=== PATIENT | male | born 1950 | race Caucasian/White ===

== ENCOUNTER 2018-02-09 10:35 | Emergency (ER) | payer MEDICARE ==
[~2018-02-09] VITALS: Ht 170.2 cm; Wt 96.2 kg
[2018-02-09 10:39] VITALS: BP 153/95
[2018-02-09 11:48] LABS: BASOPHILS # (AUTO) 0.03 x10^3/uL (0-0.1); BASOPHILS % (AUTO) 0 % (0-1); EOSINOPHILS # (AUTO) 0.15 x10^3/uL (0-0.4); EOSINOPHILS % (AUTO) 2 % (1-7); LYMPHOCYTES # (AUTO) 1.25 x10^3/uL (1-3.4); LYMPHOCYTES % (AUTO) 15 % (22-44); MD NO; MEAN CORPUSCULAR HEMOGLOBIN 31.3 pg (27.5-34.5); MEAN CORPUSCULAR HGB CONC 33.8 g/dL (33.2-36.2); MEAN CORPUSCULAR VOLUME 92.6 fL (81-97); MEAN PLATELET VOLUME 8.3 fL (7.4-10.4); MONOCYTES # (AUTO) 0.65 x10^3/uL (0.2-0.8); MONOCYTES % (AUTO) 8 % (2-9); NEUTROPHILS # (AUTO) 6.36 x10^3/uL (1.8-6.8); NEUTROPHILS % (AUTO) 75 % (42-75); PLATELET COUNT 228 x10^3/uL (130-400); RED BLOOD COUNT 4.64 x10^6/uL (4.38-5.82); RED CELL DISTRIBUTION WIDTH 14.2 % (9.4-14.8)
[2018-02-09 11:58] LABS: ALBUMIN 3.4 g/dL (3.4-5.0); ANION GAP 5 mmol/L (5-15); CALCIUM 8.6 mg/dL (8.5-10.1); CHLORIDE 107 mmol/L (98-107); CREATININE 0.93 mg/dL (0.7-1.3)
== END 2018-02-09 13:13 | disposition home or self-care (01) ==
LOC: ED 13:12
DX: M25.562 Pain in left knee (principal); M79.662 Pain in left lower leg; M25.572 Pain in left ankle and joints of left foot; M06.9 Rheumatoid arthritis, unspecified; Z88.5 Allergy status to narcotic agent; Z88.2 Allergy status to sulfonamides
CPT/HCPCS: 36415; 80048; 82040; 85025; 99285

== ENCOUNTER 2018-06-08 20:35 | Inpatient (IN) | payer MEDICARE ==
[~2018-06-08] VITALS: Ht 175.3 cm; Wt 96.0 kg
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
[2018-06-08] MEDS ORDERED: SODIUM CHLORIDE FLUSH 10ML SYR IVF ONE (21:00)
[2018-06-08] MEDS ORDERED: ONDANSETRON 2MG/ML, 2ML IVPush ONE (21:00)
[2018-06-08 21:04] LABS: BASOPHILS # (AUTO) 0.05 x10^3/uL (0-0.1); BASOPHILS % (AUTO) 0 % (0-1); EOSINOPHILS # (AUTO) 0.17 x10^3/uL (0-0.4); EOSINOPHILS % (AUTO) 1 % (1-7); LYMPHOCYTES # (AUTO) 1.72 x10^3/uL (1-3.4); LYMPHOCYTES % (AUTO) 13 % (22-44); MD NO; MEAN CORPUSCULAR HEMOGLOBIN 31.4 pg (27.5-34.5); MEAN CORPUSCULAR VOLUME 92.4 fL (81-97); MEAN PLATELET VOLUME 7.6 fL (7.4-10.4); MONOCYTES # (AUTO) 0.71 x10^3/uL (0.2-0.8); MONOCYTES % (AUTO) 5 % (2-9); NEUTROPHILS # (AUTO) 10.87 x10^3/uL (1.8-6.8); NEUTROPHILS % (AUTO) 80 % (42-75); PLATELET COUNT 233 x10^3/uL (130-400); RED BLOOD COUNT 4.96 x10^6/uL (4.38-5.82); RED CELL DISTRIBUTION WIDTH 14.4 % (9.4-14.8)
[2018-06-08 21:15] LABS: ALANINE AMINOTRANSFERASE 33 U/L (12-78); ALBUMIN 3.9 g/dL (3.4-5.0); ANION GAP 4 mmol/L (5-15); CALCIUM 9.5 mg/dL (8.5-10.1); CHLORIDE 105 mmol/L (98-107); CREATININE 0.94 mg/dL (0.7-1.3)
[2018-06-08 21:17] LABS: ALKALINE PHOSPHATASE 90 U/L (45-117); BILIRUBIN,TOTAL 0.5 mg/dL (0.2-1.0); TOTAL PROTEIN 7.9 g/dL (6.4-8.2)
--- NOTE | 2018-06-08 21:27 | NUR ---
IV ESTABLISHED, PT TO CT
[2018-06-08] MEDS ORDERED: OMNIPAQUE 350 MG/ML, 100ML BOTTLE ONE (22:03)
[2018-06-08] MEDS ORDERED: GABA300C10 PO (22:11)
[2018-06-08] MEDS ORDERED: HYDR25TA6 PO (22:11)
[2018-06-08] MEDS ORDERED: ONDANSETRON 2MG/ML, 2ML ONE (22:11)
[2018-06-08] MEDS ORDERED: CETI-237 PO (22:11)
[2018-06-08] MEDS ORDERED: ASPI-496 PO (22:11)
[2018-06-08] MEDS ORDERED: OMEP-110 PO (22:11)
[2018-06-08] MEDS ORDERED: SPIR50TA4 PO (22:11)
[2018-06-08] MEDS ORDERED: LOSA100T14 PO (22:11)
[2018-06-08] MEDS ORDERED: HYDROmorphone 1 MG/ML, 1ML AMP ONE (22:12)
--- NOTE | 2018-06-08 22:13 | NUR ---
PT MEDICATED PER eMAR
[2018-06-08] MEDS: HYDROmorphone 2 MG/ML, 1ML IVPush PRN (22:21)
--- NOTE | 2018-06-08 22:30 | NUR ---
PT O2 SAT DROPPING IN 80'S, PLACED ON O2 VIA NC
[2018-06-08 22:37] LABS: MICROSCOPIC NOT IND
[2018-06-08 22:40] LABS: CULTURE INDICATED? NO
--- NOTE | 2018-06-08 23:20 | NUR ---
PER DR COLE, NO CIPRO OR FLAGYL
[2018-06-08] MEDS ORDERED: METRONIDAZOLE PMX 500MG/100ML 0 ML ONE (23:22)
[2018-06-08] MEDS ORDERED: CIPROFLOXACIN/PMX 400MG/200ML 0 ML ONE (23:23)
--- NOTE | 2018-06-08 23:24 | NUR ---
PER DR GAVIN, NO BLOOD CULTURES TO BE DRAWN BEFORE ANTIBIOTICS
[2018-06-08] MEDS ORDERED: CIPROFLOXACIN/PMX 400MG/200ML 200 ML IV ONE (23:30)
[2018-06-08] MEDS ORDERED: METRONIDAZOLE PMX 500MG/100ML 100 ML IV ONE (23:30)
--- NOTE | 2018-06-08 23:39 | NUR ---
REPORT GIVE TO MARK MARX
[2018-06-09] MEDS ORDERED: hydrALAzine 20 MG/ML, 1ML IVPush PRN
[2018-06-09] MEDS ORDERED: OXYcodone/APAP 5/325MG TABLET PO PRN
[2018-06-09] MEDS ORDERED: ONDANSETRON 2MG/ML, 2ML IVPush PRN
[2018-06-09] MEDS ORDERED: PROMETHAZINE 25 MG/ML, 1ML IM PRN
[2018-06-09] MEDS ORDERED: ONDANSETRON ODT 4 MG PO PRN
[2018-06-09] MEDS ORDERED: ACETAMINOPHEN 325 MG TABLET PO PRN
[2018-06-09] MEDS ORDERED: LABETALOL 5 MG/ML SYRINGE IVPush PRN
[2018-06-09 00:04] VITALS: BP 165/75
[2018-06-09 00:08] LABS: HEMOGLOBIN A1C 5.6 % (4.2-6.3)
[2018-06-09 00:09] LABS: FREE T4 (FREE THYROXINE) 0.88 ng/dL (0.76-1.46); THYROID STIMULATING HORMONE 1.67 mIU/L (0.358-3.740)
[2018-06-09] MEDS: HYDROmorphone 2 MG/ML, 1ML IVPush PRN (00:47)
[2018-06-09] MEDS: PIPERACILLIN/TAZO/PMX 3.375GM 50 ML IV SCH ×4 (00:47→17:57)
[2018-06-09] MEDS: SODIUM CHLORIDE 0.9% 1,000 ML IV SCH ×2 (00:47→10:58)
[2018-06-09] MEDS: GABAPENTIN 300 MG CAPSULE PO SCH ×4 (00:48→20:02)
[2018-06-09 00:53] LABS: HCT (SEDRATE) 45.9 % (39.2-51.8)
[2018-06-09] MEDS: LACTOBACILLUS CHEW TABLET PO SCH ×4 (01:02→20:02)
[2018-06-09] MEDS: HYDROmorphone 2 MG/ML, 1ML IV PRN ×6 (01:19→23:31)
[2018-06-09 02:20] VITALS: BP 137/82
[2018-06-09 06:02] LABS: BASOPHILS # (AUTO) 0.03 x10^3/uL (0-0.1); BASOPHILS % (AUTO) 0 % (0-1); EOSINOPHILS % (AUTO) 3 % (1-7); LYMPHOCYTES # (AUTO) 2.14 x10^3/uL (1-3.4); LYMPHOCYTES % (AUTO) 16 % (22-44); MD NO; MEAN CORPUSCULAR HEMOGLOBIN 30.7 pg (27.5-34.5); MEAN CORPUSCULAR HGB CONC 33.1 g/dL (33.2-36.2); MEAN CORPUSCULAR VOLUME 92.7 fL (81-97); MEAN PLATELET VOLUME 7.9 fL (7.4-10.4); MONOCYTES # (AUTO) 1.04 x10^3/uL (0.2-0.8); MONOCYTES % (AUTO) 8 % (2-9); NEUTROPHILS # (AUTO) 9.62 x10^3/uL (1.8-6.8); NEUTROPHILS % (AUTO) 73 % (42-75); PLATELET COUNT 205 x10^3/uL (130-400); RED BLOOD COUNT 4.71 x10^6/uL (4.38-5.82); RED CELL DISTRIBUTION WIDTH 14.6 % (9.4-14.8)
[2018-06-09 06:08] LABS: ALANINE AMINOTRANSFERASE 24 U/L (12-78); ALBUMIN 3.4 g/dL (3.4-5.0); ANION GAP 4 mmol/L (5-15); CALCIUM 8.7 mg/dL (8.5-10.1); CHLORIDE 107 mmol/L (98-107)
[2018-06-09 06:11] LABS: ALKALINE PHOSPHATASE 79 U/L (45-117); BILIRUBIN,TOTAL 0.8 mg/dL (0.2-1.0); CHOL/HDL RATIO 3.4; CHOLESTEROL, TOTAL 144 mg/dL (140-239); CREATININE 1.02 mg/dL (0.7-1.3); HDL CHOL % 29 % (26-37); HDL CHOLESTEROL (DIRECT) 42 mg/dL (40-60); LDL CHOLESTEROL,CALCULATED 80 mg/dL (54-169); LDL/HDL RATIO 1.9 (0.5-3.0); TOTAL PROTEIN 6.5 g/dL (6.4-8.2); TRIGLYCERIDES 110 mg/dL (50-200); VLDL CHOLESTEROL 22 mg/dL (0-25)
[2018-06-09] MEDS: OMEPRAZOLE 20 MG CAPSULE.DR PO SCH (07:55)
[2018-06-09] MEDS: ASPIRIN 81 MG TABLET EC PO SCH (07:55)
[2018-06-09 07:57] VITALS: BP 155/90
[2018-06-09] MEDS: HYDROCHLOROTHIAZIDE 25 MG TABLET PO SCH (07:57)
[2018-06-09] MEDS: LOSARTAN 50MG TABLET PO SCH (07:57)
[2018-06-09] MEDS: SPIRONOLACTONE 50 MG TABLET PO SCH (07:57)
[2018-06-09] MEDS: EZETIMIBE 10 MG TABLET PO SCH (12:04)
[2018-06-09 13:18] VITALS: BP 104/68
[2018-06-09 21:14] VITALS: BP 117/70
--- NOTE | 2018-06-09 23:14 | NUR ---
MARIBEL GRIER - Fall Risk Medication(s) present and receiving anticoagulants.
[2018-06-10] MEDS: PIPERACILLIN/TAZO/PMX 3.375GM 50 ML IV SCH ×5 (00:37→23:51)
[2018-06-10 01:09] VITALS: BP 108/64
[2018-06-10 07:40] VITALS: BP 106/67
[2018-06-10] MEDS: HYDROmorphone 2 MG/ML, 1ML IV PRN ×3 (07:54→19:48)
[2018-06-10] MEDS ORDERED: SPIRONOLACTONE 25 MG TABLET ONE (08:58)
[2018-06-10] MEDS: SPIRONOLACTONE 50 MG TABLET PO SCH (09:00)
[2018-06-10] MEDS: OMEPRAZOLE 20 MG CAPSULE.DR PO SCH ×2 (09:00→09:26)
[2018-06-10 09:21] LABS: CLOSTRIDIUM DIFFICILE ANTIGEN NEGATIVE; CLOSTRIDIUM DIFFICILE TOXIN NEGATIVE (Negative)
[2018-06-10 09:23] LABS: BASOPHILS # (AUTO) 0.09 x10^3/uL (0-0.1); BASOPHILS % (AUTO) 1 % (0-1); EOSINOPHILS # (AUTO) 0.36 x10^3/uL (0-0.4); EOSINOPHILS % (AUTO) 4 % (1-7); LYMPHOCYTES # (AUTO) 1.84 x10^3/uL (1-3.4); LYMPHOCYTES % (AUTO) 18 % (22-44); MD NO; MEAN CORPUSCULAR HEMOGLOBIN 30.4 pg (27.5-34.5); MEAN CORPUSCULAR HGB CONC 32.7 g/dL (33.2-36.2); MEAN CORPUSCULAR VOLUME 92.8 fL (81-97); MONOCYTES # (AUTO) 0.89 x10^3/uL (0.2-0.8); MONOCYTES % (AUTO) 9 % (2-9); NEUTROPHILS # (AUTO) 6.87 x10^3/uL (1.8-6.8); NEUTROPHILS % (AUTO) 68 % (42-75); PLATELET COUNT 204 x10^3/uL (130-400); RED CELL DISTRIBUTION WIDTH 14.8 % (9.4-14.8)
[2018-06-10] MEDS: GABAPENTIN 300 MG CAPSULE PO SCH ×3 (09:25→21:00)
[2018-06-10] MEDS: HYDROCHLOROTHIAZIDE 25 MG TABLET PO SCH (09:26)
[2018-06-10] MEDS: LOSARTAN 50MG TABLET PO SCH (09:26)
[2018-06-10] MEDS: ASPIRIN 81 MG TABLET EC PO SCH (09:26)
[2018-06-10] MEDS: LACTOBACILLUS CHEW TABLET PO SCH ×3 (09:26→21:00)
[2018-06-10] MEDS: EZETIMIBE 10 MG TABLET PO SCH (09:31)
[2018-06-10 09:59] LABS: ALBUMIN 3.2 g/dL (3.4-5.0); CALCIUM 8.5 mg/dL (8.5-10.1); CREATININE 1.18 mg/dL (0.7-1.3)
[2018-06-10 10:03] LABS: ANION GAP 8 mmol/L (5-15); CHLORIDE 105 mmol/L (98-107)
[2018-06-10 14:00] VITALS: BP 105/66
[2018-06-10] MEDS ORDERED: ENOXAPARIN 40 MG/0.4 ML ONE (16:03)
[2018-06-10] MEDS: ENOXAPARIN 40 MG/0.4 ML SQ SCH (16:06)
[2018-06-10 19:59] VITALS: BP 108/68
[2018-06-11 03:58] VITALS: BP 114/74
[2018-06-11] MEDS ORDERED: OMEPRAZOLE 20 MG CAPSULE.DR PO SCH (06:00)
[2018-06-11] MEDS: PIPERACILLIN/TAZO/PMX 3.375GM 50 ML IV SCH ×2 (06:02→11:43)
[2018-06-11] MEDS: HYDROmorphone 2 MG/ML, 1ML IV PRN (06:05)
[2018-06-11] MEDS ORDERED: SPIRONOLACTONE 25 MG TABLET ONE (07:58)
[2018-06-11 08:09] VITALS: BP 120/79
[2018-06-11] MEDS: LACTOBACILLUS CHEW TABLET PO SCH ×2 (08:11→15:48)
[2018-06-11] MEDS: GABAPENTIN 300 MG CAPSULE PO SCH ×2 (08:11→15:48)
[2018-06-11] MEDS: HYDROCHLOROTHIAZIDE 25 MG TABLET PO SCH (08:11)
[2018-06-11] MEDS: LOSARTAN 50MG TABLET PO SCH (08:11)
[2018-06-11] MEDS: SPIRONOLACTONE 50 MG TABLET PO SCH (08:12)
[2018-06-11] MEDS: EZETIMIBE 10 MG TABLET PO SCH (08:12)
[2018-06-11] MEDS: ASPIRIN 81 MG TABLET EC PO SCH (08:12)
[2018-06-11 08:54] LABS: BASOPHILS # (AUTO) 0.04 x10^3/uL (0-0.1); BASOPHILS % (AUTO) 1 % (0-1); EOSINOPHILS # (AUTO) 0.53 x10^3/uL (0-0.4); EOSINOPHILS % (AUTO) 6 % (1-7); LYMPHOCYTES # (AUTO) 2.25 x10^3/uL (1-3.4); LYMPHOCYTES % (AUTO) 26 % (22-44); MD NO; MEAN CORPUSCULAR HEMOGLOBIN 30.7 pg (27.5-34.5); MEAN CORPUSCULAR HGB CONC 33.2 g/dL (33.2-36.2); MEAN CORPUSCULAR VOLUME 92.4 fL (81-97); MEAN PLATELET VOLUME 7.9 fL (7.4-10.4); MONOCYTES # (AUTO) 0.82 x10^3/uL (0.2-0.8); MONOCYTES % (AUTO) 9 % (2-9); NEUTROPHILS # (AUTO) 5.05 x10^3/uL (1.8-6.8); NEUTROPHILS % (AUTO) 58 % (42-75); PLATELET COUNT 211 x10^3/uL (130-400); RED BLOOD COUNT 4.71 x10^6/uL (4.38-5.82); RED CELL DISTRIBUTION WIDTH 14.4 % (9.4-14.8)
[2018-06-11 08:58] LABS: ALBUMIN 3.3 g/dL (3.4-5.0); ANION GAP 8 mmol/L (5-15); CALCIUM 8.8 mg/dL (8.5-10.1); CHLORIDE 105 mmol/L (98-107); CREATININE 1.16 mg/dL (0.7-1.3)
[2018-06-11] MEDS ORDERED: CIPROFLOXACIN 500 MG TABLET PO SCH (09:00)
[2018-06-11] MEDS: metroNIDAZOLE 500 MG TABLET PO SCH ×2 (09:11→14:31)
[2018-06-11 13:11] VITALS: BP 105/69
[2018-06-11] MEDS ORDERED: LOPERAMIDE 2 MG CAPSULE PO ONE (14:30)
[2018-06-11] MEDS ORDERED: CIPR500T87 PO (14:42)
[2018-06-11] MEDS ORDERED: OXYC1TAB7 PO (14:42)
[2018-06-11] MEDS ORDERED: METR500T PO (14:42)
[2018-06-11 15:43] VITALS: BP 108/74
[2018-06-11] MEDS: ENOXAPARIN 40 MG/0.4 ML SQ SCH (15:48)
== END 2018-06-11 17:05 | disposition home or self-care (01) | DRG 371 ==
LOC: ED 22:53 → EDIP 23:17 → 4NOR 23:52
PROVIDERS: ADMIT Internal Medicine; ATTEND Internal Medicine
DX: A04.9 Bacterial intestinal infection, unspecified (principal); R65.11 Systemic inflammatory response syndrome (SIRS) of non-infectious origin with acute organ dysfunction; K57.32 Diverticulitis of large intestine without perforation or abscess without bleeding; A09 Infectious gastroenteritis and colitis, unspecified; E78.00 Pure hypercholesterolemia, unspecified; I10 Essential (primary) hypertension; K21.9 Gastro-esophageal reflux disease without esophagitis; M06.9 Rheumatoid arthritis, unspecified; Z82.49 Family history of ischemic heart disease and other diseases of the circulatory system; Z98.1 Arthrodesis status; Z88.6 Allergy status to analgesic agent; Z88.3 Allergy status to other anti-infective agents; Z88.5 Allergy status to narcotic agent; Z88.8 Allergy status to other drugs, medicaments and biological substances; Z79.82 Long term (current) use of aspirin; Z79.899 Other long term (current) drug therapy
CPT/HCPCS: 36415; 74177; 80053; 80061; 80069; 81003; 83036; 83690; 83735; 84439; 84443; 85025; 85651; 87040; 87046; 87324; 89055; 96374; 96375; 96376; G0378; J1170; J1650; J2405; J2543; Q9967; J7030

== ENCOUNTER 2018-11-16 16:15 | Inpatient (IN) | payer MEDICARE ==
[~2018-11-16] VITALS: Ht 170.2 cm; Wt 96.0 kg
[2018-11-17 12:00] VITALS: BP 136/78
== END 2018-11-17 17:15 | disposition home or self-care (01) | DRG 392 ==
LOC: ED 18:13 → EDIP 19:28 → 5SO 20:20 → DCLOUNGE 11-17 17:00
PROVIDERS: ADMIT Internal Medicine; ATTEND Internal Medicine
DX: K21.9 Gastro-esophageal reflux disease without esophagitis (principal); D72.829 Elevated white blood cell count, unspecified; E78.00 Pure hypercholesterolemia, unspecified; E78.5 Hyperlipidemia, unspecified; I10 Essential (primary) hypertension; M06.9 Rheumatoid arthritis, unspecified; Z82.49 Family history of ischemic heart disease and other diseases of the circulatory system; Z98.1 Arthrodesis status; Z96.643 Presence of artificial hip joint, bilateral
CPT/HCPCS: 36415; 71045; 71275; 78452; 80053; 80061; 83690; 84439; 84443; 84484; 85025; 85379; 93005; 93017; 99285; G0378; Q9967; A9502; C9898